=== PATIENT | female | born 1935 | race Caucasian/White ===

== ENCOUNTER → 2017-01-24 | Outpatient (CLI) | payer OTHER ==
[~2017-01-24] MED LIST: ACEBUTOLOL HCL200 MG PO; ALEVE220 M1 PO; AMBIEN 10 MG TA10 MG PO; AMBIEN 5 MG TABL5 M1 PO; ASPIRIN EC81 M1 PO; CALCIUM 500 +1 EAC5 PO; CALCIUM PO; CARISOPRODOL 3350 MG PO; CELEBREX 200 M200 M1 PO; CELEBREX 200 M200 MG; COLACE 100 MG100 MG PO; COUMADIN 5 MG TA5 M1; COUMADIN7.5 MG; CYMBALTA30 MG PO; EVISTA PO; FENTANYL PA50 MCG/HR TP; HYDROCODON-ACE1 EAC5 PO; HYDROCODON-ACE1 EAC7 PO; LAMISIL250 MG PO; LEVOTHYROXINE0.05 MG PO; LIPITOR40 MG PO; MS CONTIN15 MG PO; MULTIVITAMINS PO; MULTIVITAMINS1 EAC7 PO; NORVASC5 MG PO; OXYCODONE-ACET1 EACH PO; PEPCID20 MG PO; PERCOCET 5-3251 EACH PO; PROLIA60 MG/1 ML INJ; PROLIA60 MG/1 ML SQ; RELAFEN500 MG PO; ROBAXIN 750 MG750 M1 PO; SECTRAL PO; SULAR20 MG PO; TRAMADOL 50 MG50 MG PO; UNICOMPLEX M TA1 TA1 PO; VITAMIN B-121000 MC1 PO; VITAMIN D3 COM1 EACH PO; VITAMIN D32000 UNI1 PO; VITAMIN E400 UNIT PO; XARELTO15 MG PO; ZESTRIL10 MG PO; [UNRECOGNIZED DRUG - OTHER] INJ
== END ==
LOC: RAD 09:46
DX: M19.042 Primary osteoarthritis, left hand (principal); M19.041 Primary osteoarthritis, right hand; M25.742 Osteophyte, left hand; M25.741 Osteophyte, right hand

== ENCOUNTER → 2017-02-25 | Outpatient (CLI) | payer OTHER ==
[~2017-02-25] VITALS: Ht 157.5 cm; Wt 65.6 kg
[~2017-02-25] MED LIST changes: +MELATONIN3 MG PO
--- NOTE | ~2017-02-25 | HPC ---
[facility] [place] [address] PAIN MANAGEMENT CONSULTATION Name: AMANDEEP MARRUFO Room #: REG BEBA [place]#: [id number] Admission: 02/25/17 Attend Phys: Hamilton Ambrosio DO Discharge: Date of : 37 Report #: [id number] THIS REPORT FOR: //name// CC: Lynette Ambrosio HISTORY OF PRESENT ILLNESS: The patient is a very pleasant 81-year-old female. She has been treated for SI joint dysfunction. She is status post lumbar decompressive laminectomy and has neuropathic pain component. She did well with an SI joint injection at last visit on 06/03/2016. She prior had been seen back in 2012 for lumbar radicular symptoms, subsequently went on to have back surgery. At last visit, we did bilateral SI joint injections with, per the patient, 70% improvement in baseline pain for 3-4 months, able to stand and walk with less pain, pain has gradually begun to recur, without antecedent trauma and/or overuse. PHYSICAL EXAMINATION: Shows a 81-year-old female, appearing somewhat younger than stated age. BMI is 26.4 kilograms per meter squared. Vital signs are stable as noted in the EMR. Rises from the chair easily. Gait is tandem. Diffuse tenderness across the low back. Positive Mitesh test bilaterally. Lower extremity strength is symmetric. Straight leg raise is negative. 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 She is status post lumbar decompressive laminectomy. RECOMMENDATIONS: 1. Bilateral SI joint injection under fluoroscopy. 2. Follow up simply as needed. We did briefly talk about fusion (iFuse procedure). Presently, however, we will simply continue with current therapy, occasional SI joint injection under fluoroscopy, and core strengthening exercises. PROCEDURE: Bilateral SI joint injection under fluoroscopy. DESCRIPTION OF PROCEDURE: After written and informed consent was obtained including risk of infection, nerve trauma, increased pain and weakness, the patient wishes to proceed. The patient was taken to the fluoroscopy suite, placed in the prone position. The sacroiliac joint was visualized using the C-arm, turned in an oblique fashion to align the joint. The skin overlying the area was cleansed with ChloraPrep. Skin wheal with Xylocaine was raised. A 22 gauge spinal needle was inserted into the inferior aspect of the joint. A low volume extension tubing was then attached to the needle after the stylet was removed. Negative aspiration was accomplished. A 1 mL of Omnipaque was injected which showed spread within the SI joint. 40 mg triamcinolone plus 2 mL of 0.5% preservative-free bupivacaine was injected into the joint. Needle was removed. Attention was then turned to the contralateral joint which was treated [address] [address] PAIN MANAGEMENT CONSULTATION Name: NIRUAMANDEEP LILIAM Room #: REG BEBA [place]#: [id number] Admission: 02/25/17 Attend Phys: Hamilton Ambrosio DO Discharge: Date of : 37 Report #: [id number] in an identical fashion. After both needles were removed the prep was washed off. Two Band-Aids were applied over the puncture sites. The patient was allowed to ambulate to the recovery room, monitored for an appropriate period of time, discharged in good and stable condition. Flouroscopy time was under 15 seconds. <ELECTRONICALLY SIGNED> By: Hamilton Ambrosio DO 02/28/17 [id number] Hamilton Ambrosio DO /nt
[2017-02-25 10:46] VITALS: BP 127/64
== END ==
LOC: PAIN 07:28
DX: M53.3 Sacrococcygeal disorders, not elsewhere classified (principal); M96.1 Postlaminectomy syndrome, not elsewhere classified; M54.16 Radiculopathy, lumbar region; I10 Essential (primary) hypertension; Z87.891 Personal history of nicotine dependence

== ENCOUNTER → 2017-03-25 | Outpatient (CLI) | payer OTHER | LOC: ULTRA 10:03 | DX: M79.604 Pain in right leg (principal); R60.0 Localized edema ==

== ENCOUNTER → 2017-08-01 | Outpatient (CLI) | payer OTHER | LOC: RAD 02:01 | DX: Z12.31 Encounter for screening mammogram for malignant neoplasm of breast (principal) ==

== ENCOUNTER 2017-09-23 11:11 | Emergency (ER) | payer OTHER ==
[~2017-09-23] VITALS: Ht 157.5 cm; Wt 63.5 kg
[2017-09-23] MEDS ORDERED: REGLAN 10 MG TA10 MG PO (12:53)
== END 2017-09-23 13:17 | disposition home or self-care (01) ==
LOC: ER 11:11
DX: R51 Headache (principal); I10 Essential (primary) hypertension; E78.00 Pure hypercholesterolemia, unspecified; E03.9 Hypothyroidism, unspecified; Z85.828 Personal history of other malignant neoplasm of skin; F10.99 Alcohol use, unspecified with unspecified alcohol-induced disorder; Z90.49 Acquired absence of other specified parts of digestive tract; Z87.891 Personal history of nicotine dependence; Z88.0 Allergy status to penicillin; Z88.8 Allergy status to other drugs, medicaments and biological substances

== ENCOUNTER 2017-10-20 14:00 | Emergency (ER) | payer OTHER ==
[~2017-10-20] VITALS: Ht 160 cm; Wt 65.8 kg
[~2017-10-20 14:00] MED LIST changes: +REGLAN 10 MG TA10 MG PO
[2017-10-20 16:12] VITALS: BP 144/60
== END 2017-10-20 16:14 | disposition home or self-care (01) ==
LOC: ER 14:00
DX: Y99.8 Other external cause status (principal); S09.90XA Unspecified injury of head, initial encounter; I10 Essential (primary) hypertension; E78.00 Pure hypercholesterolemia, unspecified; E03.9 Hypothyroidism, unspecified; M81.0 Age-related osteoporosis without current pathological fracture; Z87.891 Personal history of nicotine dependence; Z90.49 Acquired absence of other specified parts of digestive tract; Z88.0 Allergy status to penicillin; Z88.4 Allergy status to anesthetic agent; Z88.8 Allergy status to other drugs, medicaments and biological substances; Y92.091 Bathroom in other non-institutional residence as the place of occurrence of the external cause; Y93.89 Activity, other specified; W18.2XXA Fall in (into) shower or empty bathtub, initial encounter

== ENCOUNTER 2018-02-08 13:59 | Emergency (ER) | payer OTHER ==
[~2018-02-08] VITALS: Ht 160 cm; Wt 67.1 kg
[2018-02-08] MEDS ORDERED: NEURONTIN 300300 M1 PO (14:43)
[2018-02-08] MEDS ORDERED: SULAR20 MG PO (14:43)
[2018-02-08] MEDS ORDERED: XALATAN2.5 ML OPHTHALMIC (14:44)
[2018-02-08] MEDS ORDERED: FLONASE 0.05%50 MCG NASAL (14:44)
== END 2018-02-08 15:56 | disposition home or self-care (01) ==
LOC: ER 13:59
DX: S20.219A Contusion of unspecified front wall of thorax, initial encounter (principal); S00.81XA Abrasion of other part of head, initial encounter; I10 Essential (primary) hypertension; E78.00 Pure hypercholesterolemia, unspecified; E03.9 Hypothyroidism, unspecified; Z87.891 Personal history of nicotine dependence; Z90.49 Acquired absence of other specified parts of digestive tract; Z88.0 Allergy status to penicillin; W19.XXXA Unspecified fall, initial encounter; Y93.01 Activity, walking, marching and hiking; Y92.481 Parking lot as the place of occurrence of the external cause; Y99.8 Other external cause status

== ENCOUNTER → 2018-08-04 | Outpatient (CLI) | payer OTHER ==
[~2018-08-04] MED LIST changes: +FLONASE 0.05%50 MCG NASAL; +NEURONTIN 300300 M1 PO; +XALATAN2.5 ML OPHTHALMIC
== END ==
LOC: RAD 02:42
DX: Z12.31 Encounter for screening mammogram for malignant neoplasm of breast (principal)

== ENCOUNTER → 2019-05-08 | Outpatient (CLI) | payer OTHER ==
[~2019-05-08] VITALS: Ht 157.5 cm; Wt 68.7 kg
[~2019-05-08] MED LIST changes: +CALCIUM 600 +1 EAC1 PO; -HYDROCODON-ACE1 EAC5 PO; +PROLIA60 MG/1 ML SUBQ
--- NOTE | ~2019-05-08 | HPC ---
[facility] [address] [place] [address] PAIN MANAGEMENT CONSULTATION Name: AMANDEEP MARRUFO Room #: REG [facility] Andriy.#: [id number] Admission: 05/08/19 ������������������ Attend Phys: Jonas Ambrosio DO Discharge: ������������������ Date of : 37 Report #: [id number] THIS REPORT FOR: //name// CC: Jonas Castellon MD DATE OF SERVICE: 05/08/2019 REFERRING PHYSICIAN: Lynette Castellon MD CHIEF COMPLAINT: Bilateral SI joint pain. HISTORY OF PRESENT ILLNESS: As you know, the patient is a very pleasant 83-year-old female who was referred to our service in 2007 for symptomatic lumbar radiculopathy. We have been following her case for an extended period of time. She has undergone complete fusion of the lower lumbar spine, which left her unfortunately with bilateral SI joint pain. She was subsequently referred back to our clinic for SI joint dysfunction. She has undergone SI joint injections with my partner, Dr. Hamilton Ambrosio in the past with good efficacy. She returns today in followup visit with pain score of around 8/10, requesting to undergo bilateral SI joint injections to hopefully improve overall pain. It was noted that the patient has had multiple falls of recent. She states that she is "just losing balance." She indicates that she is not losing consciousness, she is not dizzy and she does not feel as if she has any foot drop symptoms that might be leading to her falls. She has returned in followup visit stating pain over the bilateral SI joints. ALLERGIES: MANNITOL, PENICILLIN G, RECLAST, MIDAZOLAM. CURRENT MEDICATIONS: Calcium carbonate 1 tab per day, Prolia 60 mg subcutaneous, latanoprost one drop each eye per day, fluticasone spray one spray each nostril per day, gabapentin 300 mg p.o. at bedtime, Sular 20 mg once a day, duloxetine 30 mg once a day, zolpidem 5 mg per day, hydrocodone 5/325 one tab every 6 hours p.r.n. for pain, levothyroxine 50 mcg per day, cholecalciferol 2000 units per day, aspirin 81 mg per day, atorvastatin 40 mg per day, Zestril 10 mg per day. SOCIAL HISTORY: The patient denies tobacco, alcohol, IV or illicit drug use. She is retired, retired years ago, accompanied by her present in room today. IMAGING: No new imaging available. PQRS: The patient has known osteoarthritic changes of the lumbar spine, bilateral hips and SI joints. No rheumatoid arthritis. [place] [address] PAIN MANAGEMENT CONSULTATION Name: AMANDEEP [facility]ARRUFO [id number] Admission: 05/08/19 ������������������ Attend Phys: Jonas Ambrosio DO Discharge: ������������������ Date of : 37 Report #: [id number] intensity at 8/10. She is a fall risk and has had multiple falls in the last 3 months. She is not utilizing any ambulatory device. She is not on blood thinner. She is treated for hypertension. She has been on opioids for an extended period of time. She has a low opioid addiction and potential. She is placing pain impact score at 50/70, indicating severe interference of daily activities secondary to pain. PHYSICAL EXAMINATION: VITAL SIGNS: Blood pressure 139/64, pulse 66, respiratory rate 16, unlabored. The patient is 96% on room air. Height 5 feet 2 inches tall, weight 151.4 pounds, BMI calculated at 27.7. GENERAL: Well-developed, well-nourished, well-hydrated 83-year-old female appearing stated age. She is placing current pain score at 8/10. HEENT: Normocephalic, atraumatic. Pupils equal, round, reactive to light. EXTREMITIES: Show no clubbing, no cyanosis, and no edema. MUSCULOSKELETAL: There is palpatory tenderness over the bilateral SI joints when compared to left. Seated straight leg raising negative. Supine straight leg raising negative. Mitesh's test negative. Modified Gaenslen's positive for some axial low back pain. Ankle clonus negative. Babinski is negative. Weightbearing from a seated to standing position exacerbates bilateral SI joint pain. ASSESSMENT: 1. Bilateral sacroiliac joint dysfunction. 2. Bilateral sacroiliac joint osteoarthritis. 3. Intractable pain. PLAN: 1. The patient has returned today in followup visit to undergo bilateral SI joint injections under fluoroscopic guidance. The patient reports good efficacy with previous injections provided by Dr. Hamilton Ambrosio nearly 2 years ago. She indicates that she has had recent falls that may have exacerbated her symptoms. She returns today to discuss continuation of these injection therapies. She feels they have worked beneficially in the past and is hopeful to see similar improvement today. She believes she may have exacerbated symptoms during recent falls for which she states she "just trips." She does not appear to be losing consciousness based on her history. She remembers the falls and remembers landing. She has been evaluated by multiple physicians and by the Emergency Departments and no specific etiology has been found. The dysfunction noted in the SI joints appears to be relatively traditional finding typically seen with people who have had lumbar fusions. I have discussed this with the patient today. She is amenable to undergo bilateral SI joint injections given the efficacy she received at last visit. The patient has been advised risks and benefits of bilateral SI joint injections. The risks include but are not necessarily limited to bleeding, [facility] [address] [place] [address] PAIN MANAGEMENT CONSULTATION Name: AMANDEEP MARRUFO Room #: REG [facility].#: [id number] Admission: 05/08/19 ������������������ Attend Phys: Jonas Ambrosio DO Discharge: ������������������ Date of : 37 Report #: [id number] bruising, infection, worsening pain, no relief of pain, and also risk of temporary or permanent muscle weakness, temporary or permanent nerve damage, possible paralysis and . The patient states she understood and wished to proceed. 2. No medication changes made at today's visit. The patient will continue current medical therapy as previously prescribed. 3. We will see the patient back in followup visit on an as needed basis. PROCEDURE NOTE DESCRIPTION OF PROCEDURE: Bilateral SI joint injection under fluoroscopic guidance. After written informed consent was obtained including risks of infection, nerve trauma, increased pain or weakness, the patient wished to proceed. The patient was taken to the fluoroscopy suite, placed in prone position. The sacroiliac joint was visualized using the fluoroscopic device. This was placed in an oblique fashion to align the anterior and posterior joint space. Skin overlying the area was then cleansed with chlorhexidine. Skin wheal of Xylocaine was raised on both the left and right side. A 22-gauge spinal needle was inserted into the inferior aspect of the joint. A low volume extension tubing was then placed on to the needle after the stylet was removed. Negative aspiration was accomplished. A 0.5 mL of Omnipaque was injected at each of the SI joints with good SI joint arthrogram noted both on the left and right side. Next, 2 mL of a solution containing 1 mL 40 mg per mL, 40 mg total triamcinolone and 1 mL of bupivacaine 0.5% was injected at each joint. [place] were then retracted approximately half way, flushed with 1 mL of 1% lidocaine and then removed. Sterile bandage placed over injection site. There were no new motor deficits present in lower extremities following procedure. The patient tolerated procedure well, carefully escorted to recovery room in stable condition. No apparent complications. After meeting discharge criteria, the patient was discharged home. ��������������������������������������������� ���������������������������������������� By: ��������������������������������������������� [id number] Jonas Ambrosio DO /nt
[2019-05-08 13:22] VITALS: BP 139/64
--- NOTE | 2019-05-08 13:43 | NUR ---
Pain Clinic Assessment: 1. History of Osteoarthritis: * History of Rheumatoid Arthritis: 2. Height: 5 ft. 2 in. 157.5 cm. Weight: 151.4 lb. oz. 68.675 kg. Patient's BMI: 27.7 3. Vital Signs: BP: 139/64 Pulse: 66 Resp: 16 Temp: 02 Sat: 96 ECG Mon: 4. Pain Intensity: 8 5. Fall Risk: Dizziness: N Needs help standing or walking: N Fallen in the last 3 months: N Fall risk comments: 6. Patient on Blood Thinner: None 7. History of Hypertension: Y 8. Opioid Therapy greater than 6 weeks: Y Opiate Contract Signed: 9. Risk Assessment Tool Provided: 10. Functional Assessment Tool: 11. Recreational Drug Use: Never Drug Type: Tobacco Use: Former Smoker Tobacco Type: Amount or Packs/day: How Many Years: Alcohol Use: Yes Frequency: Quant:
== END | disposition home or self-care (01) ==
LOC: PAIN 12:42
DX: M53.3 Sacrococcygeal disorders, not elsewhere classified (principal); G89.29 Other chronic pain; I10 Essential (primary) hypertension; Z98.890 Other specified postprocedural states; Z88.0 Allergy status to penicillin; Z88.8 Allergy status to other drugs, medicaments and biological substances; Z79.899 Other long term (current) drug therapy; Z79.891 Long term (current) use of opiate analgesic

== ENCOUNTER → 2019-09-28 | Outpatient (CLI) | payer OTHER | LOC: BC 13:29 | DX: Z12.31 Encounter for screening mammogram for malignant neoplasm of breast (principal) ==

== ENCOUNTER → 2019-11-20 | Outpatient (CLI) | payer OTHER ==
[2019-11-20 14:32] LABS: CREATININE 0.8 mg/dL (0.6-1.0)
== END ==
LOC: MRI 13:46
PROVIDERS: Physical Medicine & Rehabilitation Sports Medicine
DX: M47.816 Spondylosis without myelopathy or radiculopathy, lumbar region (principal); M43.26 Fusion of spine, lumbar region; M53.86 Other specified dorsopathies, lumbar region; N28.1 Cyst of kidney, acquired; M51.26 Other intervertebral disc displacement, lumbar region; M48.061 Spinal stenosis, lumbar region without neurogenic claudication; Z98.890 Other specified postprocedural states

== ENCOUNTER → 2020-04-14 | Outpatient (CLI) | payer OTHER | LOC: SJCVC 14:03 | PROVIDERS: ATTEND Internal Medicine | DX: I49.3 Ventricular premature depolarization (principal); I10 Essential (primary) hypertension; I65.23 Occlusion and stenosis of bilateral carotid arteries; K21.9 Gastro-esophageal reflux disease without esophagitis; E03.9 Hypothyroidism, unspecified; E78.2 Mixed hyperlipidemia; Z79.82 Long term (current) use of aspirin; Z79.899 Other long term (current) drug therapy; Z82.49 Family history of ischemic heart disease and other diseases of the circulatory system; Z87.891 Personal history of nicotine dependence ==

== ENCOUNTER → 2020-10-22 | Outpatient (CLI) | payer OTHER | LOC: RAD 14:09 | PROVIDERS: ATTEND Internal Medicine | DX: Z12.31 Encounter for screening mammogram for malignant neoplasm of breast (principal) ==

== ENCOUNTER → 2020-11-03 | Outpatient (CLI) | payer OTHER | LOC: SJCVC 14:05 | PROVIDERS: ATTEND Internal Medicine | DX: I10 Essential (primary) hypertension (principal); I49.3 Ventricular premature depolarization; E78.5 Hyperlipidemia, unspecified; I65.23 Occlusion and stenosis of bilateral carotid arteries; I25.10 Atherosclerotic heart disease of native coronary artery without angina pectoris; M19.90 Unspecified osteoarthritis, unspecified site; K21.9 Gastro-esophageal reflux disease without esophagitis; E03.9 Hypothyroidism, unspecified; E78.2 Mixed hyperlipidemia; M81.0 Age-related osteoporosis without current pathological fracture; Z79.82 Long term (current) use of aspirin; Z79.899 Other long term (current) drug therapy; Z86.718 Personal history of other venous thrombosis and embolism ==

== ENCOUNTER → 2021-05-18 | Outpatient (CLI) | payer OTHER | LOC: SJCVC 14:52 | PROVIDERS: ATTEND Internal Medicine | DX: I10 Essential (primary) hypertension (principal); E78.5 Hyperlipidemia, unspecified; I65.23 Occlusion and stenosis of bilateral carotid arteries; I49.3 Ventricular premature depolarization; M19.90 Unspecified osteoarthritis, unspecified site; I25.10 Atherosclerotic heart disease of native coronary artery without angina pectoris; K21.9 Gastro-esophageal reflux disease without esophagitis; E21.3 Hyperparathyroidism, unspecified; E03.9 Hypothyroidism, unspecified; Z86.16 Personal history of COVID-19; Z79.899 Other long term (current) drug therapy; Z79.82 Long term (current) use of aspirin; Z87.891 Personal history of nicotine dependence; Z72.89 Other problems related to lifestyle; Z88.0 Allergy status to penicillin; Z88.8 Allergy status to other drugs, medicaments and biological substances ==